=== PATIENT | male | born 1995 | race Caucasian/White ===

== ENCOUNTER 2017-10-14 01:57 | Emergency (ER) | payer BC ==
[2017-10-14 02:09] VITALS: BP 140/86
[2017-10-14] MEDS ORDERED: Lidocaine 1% with EPINEPHrine 1:100,000 20 ML MDV INJECT ONE (02:29)
--- NOTE | 2017-10-14 02:37 | EDM.PDOC ---
ED HPI GENERAL MEDICAL PROBLEM - General Chief Complaint: Head Injury Stated Complaint: FALL POSS HEAD INJURY Time Seen by Provider: 10/14/17 02:09 Source of Information: Reports: Patient History Limitations: Reports: No Limitations - History of Present Illness INITIAL COMMENTS - FREE TEXT/NARRATIVE: 22 y/o M presents with head injury. Has been drinking this evening. Fell down several stairs. Hit his head on a concrete floor. He did pass out, unknown what the duration of LOC was. He complains of a wound to the back of the head. Was apparently bleeding copiously prior to arrival. Bleeding improved upon arrival. No confusion. Denies neck pain. No back pain. No chest pain/SOB. No abd pain/ vomiting. Denies extremity injury. Headache Pain Score (Numeric/FACES): 4 - Related Data Allergies Allergy/AdvReac Type Severity Reaction Status Date / Time Sulfa (Sulfonamide Allergy Swollen Verified 10/14/17 02:09 Antibiotics) Eyes Home Meds: Home Meds . [No Known Home Meds] 10/14/17 [History] Past Medical History Other HEENT History: sinus surgery - Past Surgical History HEENT Surgical History: Reports: Tonsillectomy Social & Family History - Tobacco Use Smoking Status *Q: Never Smoker - Caffeine Use Caffeine Use: Reports: None - Recreational Drug Use Recreational Drug Use: No ED ROS GENERAL - Review of Systems Review Of Systems: See Below Constitutional: Denies: Fever HEENT: Denies: Vision Change Respiratory: Denies: Shortness of Breath Cardiovascular: Reports: No Symptoms. Denies: Chest Pain Endocrine: Reports: No Symptoms GI/Abdominal: Denies: Abdominal Pain : Reports: No Symptoms Musculoskeletal: Denies: Neck Pain Skin: Reports: No Symptoms Neurological: Reports: Headache Psychiatric: Reports: No Symptoms Hematologic/Lymphatic: Reports: No Symptoms ED EXAM, HEAD INJURY - Physical Exam Exam: See Below Exam Limited By: No Limitations General Appearance: Alert, WD/WN, No Apparent Distress, Other (appears mildly intoxicated ) Head: Normocephalic, Scalp Lacerations, Scalp Ecchymosis, Scalp Hematoma ( occipital scalp, 4 cm laceration, subcutaneous, minimal bleeding at this time, + large scalp hematoma ) Nexus Criteria: No: Focal Neurological Deficit Eyes: Bilateral Eye: Normal Inspection Ears: Normal External Exam Nose: Normal Inspection, No Blood Throat/Mouth: Normal Inspection, Normal Voice, No Airway Compromise Neck: Non-Tender, Full Range of Motion, Normal Alignment, Normal Inspection Respiratory: No Respiratory Distress, Lungs Clear, Normal Breath Sounds, Chest Non-Tender Cardiovascular: Tachycardia GI/Abdominal Exam: Soft, Non-Tender, No Distention. No: Rebound Back Exam: Normal Inspection. No: CVA Tenderness (L), CVA Tenderness (R), Vertebral Tenderness Extremities: Normal Inspection, Non-Tender Neurologic: electrician manager II-XII nml As Tested, No Motor/Sensory Deficits, Alert, Normal Mood/Affect, Oriented x 3 Skin: Normal Color, Warm/Dry ED LACERATION/WOUND & JOE PROC - Laceration/Wound Repair Middle Posterior Midline Head Lac/wound length in cm: 5 Appearance: Subcutaneous, Clean Distal NVT: Neuro & Vascular Intact Local Anesthesia - Lidocaine (Xylocaine): 1% with EPI Local Anesthetic Volume: 4cc Skin Prep: Providone-Iodine (Betadine) Exploration/Debridement/Repair: Wound Explored, In a Bloodless Field, Explored to Base, No Foreign Material Found Suture Size: 4-0 # of Sutures: 3 Suture Type: Prolene, Interrupted, Simple Tetanus Status Addressed: Yes Complications: No Course - Vital Signs Last Recorded V/S: Last Vital Signs Temp 36.6 C 10/14/17 02:06 Pulse 91 10/14/17 03:49 Resp 16 10/14/17 03:49 BP 140/86 10/14/17 02:06 Pulse Ox 98 10/14/17 03:49 - Orders/Labs/Meds Orders: Active Orders 24 hr Category Date Time Status EKG 12 Lead [EKG Documentation Completion] [RC] STAT Care 10/14/17 02:39 Active EKG 12 Lead [EKG Documentation Completion] [RC] STAT Care 10/14/17 03:34 Active Peripheral IV Care [RC] . DIRECTED Care 10/14/17 02:40 Active Peripheral IV Care [RC] . DIRECTED Care 10/14/17 02:40 Active Cervical Spine wo Cont [CT] Stat Exams 10/14/17 02:42 Taken Head wo Cont [CT] Stat Exams 10/14/17 02:29 Taken DRUG SCREEN, URINE [URCHEM] Stat Lab 10/14/17 03:25 Ordered Peripheral IV Insertion Adult [OM.PC] Routine Oth 10/14/17 02:40 Ordered Labs: Laboratory Tests 10/14/17 10/14/17 10/14/17 Range/Units 03:25 03:30 03:30 WBC 6.50 (4.23-9.07) K/mm3 RBC 5.67 (4.63-6.08) M/mm3 Hgb 17.1 (13.7-17.5) gm/L Hct 49.7 (40.1-51.0) % MCV 87.7 (79.0-92.2) fl MCH 30.2 (25.7-32.2) pg MCHC 34.4 (32.2-35.5) g/dl RDW Std Deviation 42.6 (35.1-43.9) fL Plt Count 330 (163-337) K/mm3 MPV 9.3 L (9.4-12.3) fl Neut % (Auto) 58.4 (34.0-67.9) % Lymph % (Auto) 26.8 (21.8-53.1) % [place] % (Auto) 12.3 H (5.3-12.2) % Eos % (Auto) 1.7 (0.8-7.0) Baso % (Auto) 0.5 (0.1-1.2) % Neut # (Auto) 3.80 (1.78-5.38) K/mm3 Lymph # (Auto) 1.74 (1.32-3.57) K/mm3 [place] # (Auto) 0.80 (0.30-0.82) K/mm3 Eos # (Auto) 0.11 (0.04-0.54) K/mm3 Baso # (Auto) 0.03 (0.01-0.08) K/mm3 Sodium 148 H (136-145) mEq/L Potassium 4.0 (3.5-5.1) mEq/L Chloride 111 H (98-107) mEq/L Carbon Dioxide 24 (21-32) mEq/L Anion Gap 17.0 H (5-15) BUN 13 (7-18) mg/dL Creatinine 1.0 (0.7-1.3) mg/dL Est Cr Clr Drug Dosing 128.26 mL/min Estimated GFR (MDRD) > 60 (>60) mL/min BUN/Creatinine Ratio 13.0 L (14-18) Glucose 108 H (74-106) mg/dL Calcium 9.3 (8.5-10.1) mg/dL Magnesium 2.2 (1.8-2.4) mg/dl Total Bilirubin 0.3 (0.2-1.0) mg/dL AST 14 L (15-37) U/L ALT 39 (16-63) U/L Alkaline Phosphatase 65 (46-116) U/L Total Protein 7.9 (6.4-8.2) g/dl Albumin 4.3 (3.4-5.0) g/dl Globulin 3.6 gm/dL Albumin/Globulin Ratio 1.2 (1-2) Urine Opiates Screen Negative (NEGATIVE) Ur Buprenorphine Scrn Negative (NEGATIVE) Ur Oxycodone Screen Negative (NEGATIVE) Urine Methadone Screen Negative (NEGATIVE) Ur Propoxyphene Screen Negative (NEGATIVE) Ur Barbiturates Screen Negative (NEGATIVE) Ur Tricyclics Screen Negative (NEGATIVE) Ur Phencyclidine Scrn Negative (NEGATIVE) Ur Amphetamine Screen Negative (NEGATIVE) U Methamphetamines Scrn Negative (NEGATIVE) U Benzodiazepines Scrn Negative (NEGATIVE) U Cocaine Metab Screen Negative (NEGATIVE) U Marijuana (THC) Screen Negative (NEGATIVE) Ethyl Alcohol (0.00) gm% 10/14/17 Range/Units 03:30 WBC (4.23-9.07) K/mm3 RBC (4.63-6.08) M/mm3 Hgb (13.7-17.5) gm/L Hct (40.1-51.0) % MCV (79.0-92.2) fl MCH (25.7-32.2) pg MCHC (32.2-35.5) g/dl RDW Std Deviation (35.1-43.9) fL Plt Count (163-337) K/mm3 MPV (9.4-12.3) fl Neut % (Auto) (34.0-67.9) % Lymph % (Auto) (21.8-53.1) % [place] % (Auto) (5.3-12.2) % Eos % (Auto) (0.8-7.0) Baso % (Auto) (0.1-1.2) % Neut # (Auto) (1.78-5.38) K/mm3 Lymph # (Auto) (1.32-3.57) K/mm3 [place] # (Auto) (0.30-0.82) K/mm3 Eos # (Auto) (0.04-0.54) K/mm3 Baso # (Auto) (0.01-0.08) K/mm3 Sodium (136-145) mEq/L Potassium (3.5-5.1) mEq/L Chloride (98-107) mEq/L Carbon Dioxide (21-32) mEq/L Anion Gap (5-15) BUN (7-18) mg/dL Creatinine (0.7-1.3) mg/dL Est Cr Clr Drug Dosing mL/min Estimated GFR (MDRD) (>60) mL/min BUN/Creatinine Ratio (14-18) Glucose (74-106) mg/dL Calcium (8.5-10.1) mg/dL Magnesium (1.8-2.4) mg/dl Total Bilirubin (0.2-1.0) mg/dL AST (15-37) U/L ALT (16-63) U/L Alkaline Phosphatase (46-116) U/L Total Protein (6.4-8.2) g/dl Albumin (3.4-5.0) g/dl Globulin gm/dL Albumin/Globulin Ratio (1-2) Urine Opiates Screen (NEGATIVE) Ur Buprenorphine Scrn (NEGATIVE) Ur Oxycodone Screen (NEGATIVE) Urine Methadone Screen (NEGATIVE) Ur Propoxyphene Screen (NEGATIVE) Ur Barbiturates Screen (NEGATIVE) Ur Tricyclics Screen (NEGATIVE) Ur Phencyclidine Scrn (NEGATIVE) Ur Amphetamine Screen (NEGATIVE) U Methamphetamines Scrn (NEGATIVE) U Benzodiazepines Scrn (NEGATIVE) U Cocaine Metab Screen (NEGATIVE) U Marijuana (THC) Screen (NEGATIVE) Ethyl Alcohol 0.21 (0.00) gm% Meds: Medications Discontinued Medications Generic Name Dose Route Start Last Admin Trade Name Freq PRN Reason Stop Dose Admin Sodium Chloride 1,000 mls @ 1,000 mls/hr 10/14/17 02:42 10/14/17 03:10 Normal Saline IV 10/14/17 03:41 1,000 mls/hr ONETIME ONE Administration Magnesium Sulfate 2 gm/ Premix 50 mls @ 50 mls/hr 10/14/17 03:16 10/14/17 04: 09 IV 10/14/17 04:15 Not Given ONETIME ONE Lidocaine/Epinephrine 20 ml 10/14/17 02:29 10/14/17 03:10 Xylocaine 1% With Epinephrine 1:100,000 INJECT 10/14/17 02:30 20 ml ONETIME ONE Administration Metoprolol Tartrate 5 mg 10/14/17 03:16 10/14/17 04:09 Lopressor IVPUSH 10/14/17 03:17 Not Given ONETIME ONE Sodium Chloride 10 ml 10/14/17 02:40 10/14/17 03:10 Saline Flush FLUSH 10 ml ASDIRECTED PRN Administration Keep Vein Open - Re-Assessments/Exams Free Text/Narrative Re-Assessment/Exam: 10/14/17 03:30 Patient was noted to be quite tachycardic upon arrival with HR 140-144. He had no specific complaint related to this. Denied palpitations/CP/SOB. EKG shows ectopic atrial tachycardia. He has no prior cardiac history. I suspect that this may be an episode triggered by adrenergic tone in the setting of acute stress related to his head injury. Labs pending. After return from head CT, he spontaneously converted to NSR with a rate of 80-90. Discussed arrhythmia with patient and his parents. They aren't aware of him having had an episode of this before. 10/14/17 03:36 10/14/17 03:49 Repeat EKG shows NSR with a rate of 89, normal intervals, no significant ST/T abnormality. CT head and C spine were both negative. 10/14/17 04:00 labs show normal CBC and chemistries. ETOH elevated at .210. Pt is feeling well and would like to go home. He is currently living with his parents, who feel comfortable taking him home. Departure - Departure Time of Disposition: 05:15 Disposition: Home, Self-Care 01 Clinical Impression: Scalp laceration Qualifiers: Encounter type: initial encounter Qualified Code(s): S01.01XA - Laceration without foreign body of scalp, initial encounter Closed head injury with concussion Qualifiers: Encounter type: initial encounter Loss of consciousness presence/duration: with LOC of 30 min or less Qualified Code(s): S06.0X1A - Concussion with loss of consciousness of 30 minutes or less, initial encounter Alcohol intoxication Qualifiers: Complication of substance-induced condition: uncomplicated Qualified Code(s): F10.920 - Alcohol use, unspecified with intoxication, uncomplicated - Discharge Information Instructions: Head Injury, Adult, Laceration Care, Adult Referrals: Lois London, [employer] [Primary Care Provider] - Forms: ED Department Discharge Additional Instructions: 1. Rest. Avoid activities that could result in a new head injury until cleared by your primary care provider. 2. Take ibuprofen and/or acetaminophen as needed for pain. 3. Keep wound clean and dry. OK to shower/wash. 4. Sutures should be removed a week from Sunday (October 22) by your primary care provider or at the walk in clinic. Call [phone] if you'd like to schedule suture removal at the walk in clinic here. 5. You had an episode of an Ectopic Atrial Tachycardia arrhythmia while you were in the Emergency Department. Because it resolved on it's own, it didn't require any treatment. It was probably related to the stress of tonight's activities. At this point you don't need any further testing, but if you get palpitations/feeling of your heart racing that doesn't stop on it's own, you should be checked again in the Emergency Department. If you have further episodes of this arrhythmia, you should also be checked by a volunteer services coordinator. - My Orders Last 24 Hours: My Active Orders 10/14/17 02:29 Head wo Cont [CT] Stat 10/14/17 02:39 EKG 12 Lead [EKG Documentation Completion] [RC] STAT 10/14/17 02:40 Peripheral IV Care [RC] . DIRECTED Peripheral IV Care [RC] . DIRECTED Peripheral IV Insertion Adult [OM.PC] Routine 10/14/17 02:42 Cervical Spine wo Cont [CT] Stat 10/14/17 03:25 DRUG SCREEN, URINE [URCHEM] Stat 10/14/17 03:34 EKG 12 Lead [EKG Documentation Completion] [RC] STAT - Assessment/Plan Last 24 Hours: My Active Orders 10/14/17 02:29 Head wo Cont [CT] Stat 10/14/17 02:39 EKG 12 Lead [EKG Documentation Completion] [RC] STAT 10/14/17 02:40 Peripheral IV Care [RC] . DIRECTED Peripheral IV Care [RC] . DIRECTED Peripheral IV Insertion Adult [OM.PC] Routine 10/14/17 02:42 Cervical Spine wo Cont [CT] Stat 10/14/17 03:25 DRUG SCREEN, URINE [URCHEM] Stat 10/14/17 03:34 EKG 12 Lead [EKG Documentation Completion] [RC] STAT
[2017-10-14] MEDS ORDERED: Sodium Chloride 0.9% 10 ML Syringe FLUSH PRN (02:40)
[2017-10-14] MEDS ORDERED: Sodium Chloride 0.9% 1,000 ML IV ONE (02:42)
[2017-10-14] MEDS ORDERED: Magnesium Sulfate/Water 2 GM in Premix Bag 1 BAG IV ONE (03:16)
[2017-10-14] MEDS ORDERED: Metoprolol Tartrate 5 MG/5 ML SDV IVPUSH ONE (03:16)
--- NOTE | 2017-10-14 14:14 | CT ---
CT cervical spine Technique: Multiple axial sections were obtained from above C1 inferiorly to the top of T3. Reconstructed sagittal and coronal images were reviewed. Comparison: No prior cervical spine imaging. Findings: Vertebral body heights and disc spaces are maintained. Vertebral bodies and posterior arches are intact. No fracture is seen. No bony central or bony neural foraminal stenosis is seen. No abnormal subluxation is seen on the reconstructed sagittal images. Impression: 1. Nothing acute is appreciated on CT study of the cervical spine. Diagnostic code #1 Agree with preliminary report issued by [facility] ([facility] preliminary report dictated on 10/14/17, 4:36 AM Central Time)
--- NOTE | 2017-10-14 14:14 | CT ---
Head CT Technique: Multiple axial sections through the brain were obtained. Intravenous contrast was not utilized. Parison: No prior intracranial imaging. Findings: Ventricles along with basal cisterns and sulci over the convexities are within normal limits for the patient's age. No abnormal parenchymal densities are seen. No evidence of intracranial hemorrhage. No midline shift or mass effect is seen. Soft tissue swelling noted within the posterior left scalp. Bone window settings were reviewed which show the visualized sinuses to appear clear. No acute calvarial abnormality is seen. Impression: 1. Soft tissue swelling within the posterior left scalp. 2. No acute intracranial abnormality is seen. No acute skull abnormality is seen. Diagnostic code #2 I agree with preliminary report issued by [facility] ([facility] preliminary report dictated on 10/14/17, 4:34 AM Central Time)
== END 2017-10-14 04:13 | disposition home or self-care (01) ==
LOC: JD.ED 01:57
DX: S06.0X1A Concussion with loss of consciousness of 30 minutes or less, initial encounter (principal); S01.01XA Laceration without foreign body of scalp, initial encounter; F10.129 Alcohol abuse with intoxication, unspecified; Z88.2 Allergy status to sulfonamides; W10.9XXA Fall (on) (from) unspecified stairs and steps, initial encounter; Y90.7 Blood alcohol level of 200-239 mg/100 ml
CPT/HCPCS: 12002; 36415; 70450; 72125; 80053; 80306; 83735; 85025; 93005; 96360; 99285; G0480; J7040; J7050; 99284-25